=== PATIENT | male | born 1955 | race Caucasian/White ===

== ENCOUNTER 2023-05-21 08:31 | Outpatient (REF) | payer OTHER, SELFPAY | END 2023-05-21 08:32 | disposition home or self-care (01) | LOC: HO.MANLDS 08:31 | PROVIDERS: Visit Provider Physician Assistant | DX: Z12.5 Encounter for screening for malignant neoplasm of prostate (principal); I10 Essential (primary) hypertension; I63.9 Cerebral infarction, unspecified; R73.01 Impaired fasting glucose | CPT/HCPCS: 36415; 80053; 80061; 83036; 84153; 85025 ==

== ENCOUNTER 2023-07-06 08:40 | Outpatient (REF) | payer OTHER, SELFPAY ==
[2023-07-06 13:23] LABS: MANUAL DIFF FLAG NO
[2023-07-06 13:31] LABS: Basophils Percent Auto 0.6 % (0-2); Eosinophils Absolute Auto 0.2 X10*3/uL (0.0-0.4); Eosinophils Percent Auto 3.8 % (0-4); Hematocrit 46.1 % (42.0-52.0); Hemoglobin 14.9 g/dl (14.0-18.0); Imm Gran Abs Auto 0.01 X10*3/uL (0.00-0.03); Imm Gran Pct Auto 0.2 % (0.0-0.4); Lymphocytes Absolute Auto 1.3 X10*3/uL (1.2-4.9); Lymphocytes Percent Auto 28.2 % (20-40); Mean Corpuscular HGB Conc 32.3 g/dl (31.0-36.0); Mean Corpuscular Hemoglobin 27.7 pg (27.0-33.0); Mean Corpuscular Volume 85.7 fL (80.0-98.0); Mean Platelet Volume 10.9 fL (9.4-12.4); Monocytes Absolute Auto 0.5 X10*3/uL (0.1-1.2); Monocytes Percent Auto 10.5 % (2-11); Neutrophils Absolute Auto 2.7 x10*3/uL (2.0-8.3); Neutrophils Percent Auto 56.7 % (45-73); Platelet Count 212 X10*3/uL (160-400); Red Blood Count 5.38 X10*6/uL (4.60-5.80); Red Cell Distribution Width 13.4 % (11.0-16.0); White Blood Count 4.8 X10*3/uL (4.8-10.8)
[2023-07-06 13:58] LABS: Alanine Aminotransferase 18 U/L (0-40); Albumin Level 4.2 g/dL (3.5-5.0); Alkaline Phosphatase 96 U/L (39-117); Anion Gap 9 (12-20); Aspartate Amino Transferase 29 U/L (5-37); Bilirubin Total 0.8 mg/dL (0.0-1.0); Blood Urea Nitrogen 22 mg/dL (9-16); C Reactive Protein < 0.10 mg/dL (< or = 0.50); Calcium 9.1 mg/dL (8.4-10.2); Carbon Dioxide 28 mmol/L (22-29); Chloride 105 mmol/L (96-108); Estimated Glomerular Filt Rate > 60; Glucose Random 97 mg/dL (60-115); Magnesium 2.1 mg/dL (1.6-2.6); Potassium 4.1 mmol/L (3.3-5.1); Sodium 138 mmol/L (135-145); Total Protein 6.7 g/dL (6.5-8.0)
[2023-07-06 14:03] LABS: Vitamin D 25-OH Total 43.9 ng/mL (>30)
[2023-07-06 14:14] LABS: Erythrocyte Sedimentation Rate 6 MM/HR (0-15)
[2023-07-06 14:16] LABS: Folate 10.9 ng/mL (> or = 4.0); Vitamin B12 573 pg/mL (200-900)
[2023-07-07 15:54] LABS: Calcium (PTHI) 9.2 mg/dL (8.6-10.3); PTHI 63 pg/mL (16-77)
[2023-07-07 17:33] LABS: Lyme Abs Screen <0.90 index
[2023-07-13 16:28] LABS: A. Phagocytophilum Ab IgG <1:64 (<1:64); A. Phagocytophilum Ab IgM <1:20 (<1:20); E. Chaffeensis Ab IgG <1:64 (<1:64); E. Chaffeensis Ab IgM <1:20 (<1:20)
== END 2023-07-06 08:41 | disposition home or self-care (01) ==
LOC: HO.MANLDS 08:40
PROVIDERS: Visit Provider Physician Assistant
DX: M79.10 Myalgia, unspecified site (principal)
CPT/HCPCS: 36415; 80053; 82306; 82550; 82607; 82746; 83735; 83970; 85025; 85652; 86140; 86617; 86618; 86666

== ENCOUNTER 2024-03-22 09:41 | Outpatient (REF) | payer OTHER, MEDICARE, SELFPAY ==
[2024-03-22 11:13] LABS: MANUAL DIFF FLAG NO
[2024-03-22 11:43] LABS: Basophils Percent Auto 0.5 % (0-2); Eosinophils Absolute Auto 0.2 X10*3/uL (0.0-0.4); Eosinophils Percent Auto 3.2 % (0-4); Hematocrit 44.8 % (42.0-52.0); Hemoglobin 14.6 g/dl (14.0-18.0); Imm Gran Abs Auto 0.02 X10*3/uL (0.00-0.03); Imm Gran Pct Auto 0.4 % (0.0-0.4); Lymphocytes Absolute Auto 1.2 X10*3/uL (1.2-4.9); Lymphocytes Percent Auto 20.6 % (20-40); Mean Corpuscular HGB Conc 32.6 g/dl (31.0-36.0); Mean Corpuscular Hemoglobin 27.7 pg (27.0-33.0); Mean Corpuscular Volume 84.8 fL (80.0-98.0); Mean Platelet Volume 10.5 fL (9.4-12.4); Monocytes Absolute Auto 0.7 X10*3/uL (0.1-1.2); Monocytes Percent Auto 12.1 % (2-11); Neutrophils Absolute Auto 3.6 x10*3/uL (2.0-8.3); Neutrophils Percent Auto 63.2 % (45-73); Platelet Count 203 X10*3/uL (160-400); Red Blood Count 5.28 X10*6/uL (4.60-5.80); Red Cell Distribution Width 13.3 % (11.0-16.0); White Blood Count 5.6 X10*3/uL (4.8-10.8)
[2024-03-22 11:47] LABS: INTERNATIONAL NORM RATIO 1.2 (0.9-1.1); Prothrombin Time 14.2 SEC (11.1-13.3)
[2024-03-22 11:50] LABS: Partial Thromboplastin Time 38.3 SEC (26.0-36.8)
[2024-03-22 11:53] LABS: D Dimer High Sensitivity < 150 NG/ML
[2024-03-22 12:24] LABS: Iron 64 mcg/dL (45-160); Percent Iron Saturation 21 % (15-50); Total Iron Binding Capacity 300 mcg/dL (228-428); Unsaturated Iron Binding 236 ug/dL
[2024-03-22 12:43] LABS: Ferritin 103 ng/mL (20-250)
[2024-03-27 01:47] LABS: Anti-Thrombin III Activity 121 % normal (80-135)
== END 2024-03-22 09:42 | disposition home or self-care (01) ==
LOC: HO.MANLDS 09:41
PROVIDERS: Visit Provider Physician Assistant
DX: D68.59 Other primary thrombophilia (principal)
CPT/HCPCS: 81400; 82728; 83540; 85025; 85230; 85300; 85379; 85610; 85730

== ENCOUNTER 2025-03-09 10:14 | Outpatient (REF) | payer OTHER, MEDICARE, SELFPAY ==
--- OUTSIDE RECORDS SUMMARY | 2025-03-09 10:31 | XMS_ITS | Encounter Summary ---
Author Organization [facility] Address [address] [place] [id number] Phone Care Team Providers Care Ammonia Refrigeration Technician Name Role Phone Donn Osorio DO Primary Care Provider [phone] Walter Gonzales MD Unavailable [phone] Encounter Details Date Type Department Care Team (Late st Contact Info) Description 03/22/2023 Procedure Pass [facility] [address] [place] [address] Social History Tobacco Use Types Packs/Day Years Used Date Smoking Tobacco: Never Smokeless Tobacco: Never Alcohol Use Standard Drinks/Week Comments Never 0 (1 standard drink = 0.6 oz pur e alcohol) Education Answer Date Recorded Are you interested in more education? Not on cosme e 12/11/2022 Are you concerned about learning? Not on file 12/11/2022 No 12/11/2022 No 12/11/2022 Digital Access Answer Date Recorded No 01/06/2023 No 01/06/2023 Reliable internet access at home? Not on file 01/06/2023 Device with a working camera? Not on file Sex and Gender Information Value Date Recorded Sex Assigned at Male 12/30/2018 10:22 PM EDT Legal Sex Male 9:53 PM EDT Gender Identity Male 12/30/2018 10:22 PM EDT Sexual Orientation Straight 12/30/2018 10 :22 PM EDT documented as of this encounter Plan of Treatment Upcoming Encounters Date Type Department Care Team (Late st Contact Info) Description 07/18/2025 9:20 AM EST Office Visit [facility] [address] [place] [address] [address] Floor, [address] [place] [id number] Walter Gonzales MD [address] [place] [id number] [email or web address] documented as of this encounter Visit Diagnoses Not on filedocumented in this encounter Care Teams Ammonia Refrigeration Technician Relationship Specialty Start Date End Date Donn Osorio DO PCP - General Internal Medicine 12/07/18 Walter Gonzales MD [address] [place] [id number] Supervisor [facility] 01/17/19 documented as of this encounter Additional Source Comments The information contained in this document represents components of the legal health record. It is not the complete legal health record.[facility]
--- OUTSIDE RECORDS SUMMARY | 2025-03-09 10:32 | XMS_ITS | Data Portability ---
Author Organization [facility], Telehealth Patient Home Address [address] [place] [address] Assessment Encounter Date Assessment Date Assessment LastModified by Organization Details LastModified Time 05/16/2024 05/16/2024 Patient presented for medication refill. Patient tolerating medication well at current dose without adverse effects. Refilled as below. Discussed plan with patient, who expressed understanding . Follow up as noted below. [email or web address] Not available 05/16/2024 11:18:20 09/15/2024 09/15/2024 Patient agreed and verbally consents to this audio and video Telehealth appt via a secure platform [email or web address] Not available 09/15/2024 15:01:37 Plan of Treatment Reminders Order Date Submit Date Provider Last Modified By Organization Details Last Modified Time Details Appointments None recorded. Lab CBC w/ auto diff 2024 025 [facility], [address] [place] [address], [address], 5 15:46:29 CMP, serum or plasma 2024 025 [facility], [address] [place] [address], [address], 5 15:46:29 iron + TIBC + ferritin, serum 2024 025 [facility], [address] [place] [address], [address], 5 15:46:29 gamma-glut amyl transferas e (ggt), serum 2024 025 [facility], [address] [place] [address], [address], 5 15:46:29 amylase + lipase, serum 2024 025 [facility], [address] [place] [address], [address], 5 15:46:29 hemoglobin A1c, QN, blood 2024 025 [facility], [address] [place] [address], [address], 5 15:47:09 vitamin D, 25-hydroxy , total, serum 2024 025 [facility], [address] [place] [address], [address], 5 15:48:04 lipid panel, blood 2024 025 [facility], [address] [place] [address], [address], 5 15:51:53 PSA, serum or plasma 2022 023 [facility], [address] [place] [address], [address], 3 11:18:24 lipid panel, serum 2022 023 [facility], [address] [place] [address], [address], 3 11:18:23 hemoglobin A1c, QN, blood 2022 023 [facility], [address] [place] [address], [address], 3 11:18:23 CMP, serum or plasma 2022 023 [facility], [address] [facility], [place], [address], 3 11:18:23 CBC w/ auto diff 2022 023 [facility], [address] [facility], [place], [address], 3 11:18:24 Referral gastroente rologist referral 2024 025 [facility], [address] [place], [address], 5 08:28:33 sleep medicine referral 2024 025 [email or web address], [address] [facility], [facility] [address], [place], [address], 5 08:28:33 dermatolog ist referral 2024 025 [email or web address], [address] [facility], [place], [address], 5 08:28:34 pulmonolog ist referral 2022 023 [email or web address] Fredrick Bran MD, [address] [place], [address], 3 08:45:32 Procedures None recorded. Surgeries None recorded. Imaging MRI, brain, w/o contrast 2022 023 [email or web address] Not available 08:23:56 Medication Orders Zepbound 2.5 mg/0.5 mL subcutaneo us pen injector 2024 025 [facility], [address] [place] [address], [id number], 5 15:45:14 Zithromax Z-Kelvin 250 mg tablet 2024 025 [facility]97011, [address] [place], [place], [id number], 5 15:07:11 Medrol (Kelvin) 4 mg tablets in a dose pack 2024 025 [facility]53843, [address] [place], [place], [id number], 5 15:07:46 benzonatat e 200 mg capsule 2024 025 [facility] #62209, [address] [place], [place], [id number], 5 15:07:12 codeine 10 mg-guaifen esin 100 mg/5 mL oral liquid 2022 023 [email or web address]39604, [address] [place], [place], [id number], 4 11:01:58 fluticason e propionate 50 mcg/actuat ion nasal spray,susp ension 2022 024 [facility] #39247, [address] [place], [place], [id number], 4 11:02:44 azithromyc in 250 mg tablet 2022 023 [email or web address] #84414, [address] [place], [place], [id number], 5 15:06:49 codeine 10 mg-guaifen esin 100 mg/5 mL oral liquid 2022 023 [email or web address], [address] [place], [place], [id number], 4 11:01:58 Patient TargetsNo targets recorded. Patient InstructionsNo instructions recorded. Reason for Referral Patroller Referral for C ough chronic, constant cough without any benefit with treatment Referring Physician: Crystal Molina, Internal Medicine, Encounter Date: 08/24/2022 Glue Wheel Operator Referral for Intestinal obstruction co-occurrent and due to decreased peristalsis had recent partial obstruction (seen in ER in [place]) needs updated colonoscopy and endoscope Referring Physician: Crystal Molina, Internal Medicine, Encounter Date: 02/28/2025 Sleep Medicine Referral for Obstructive sleep apnea syndrome Referring Physician: Crystal Molina, Internal Medicine, Encounter Date: 02/28/2025 Backup Operator Referral for M ass of head cysts on the forehead he would like moved Referring Physician: Crystal Molina, Internal Medicine, Encounter Date: 02/28/2025 Results Created Date Observation Date Name Description Value Unit Range Abnormal Flag Note LastModifiedBy Organization Detail LastModifiedTime 06/22/20 23 06/21/2023 MRI, brain , w/o contr ast No observ ation record ed. [address], [address], 05/16/2024 11:20:25 02/19/20 25 02/16/2025 CT, abdom en + pelvi s, w/o contr ast No observ ation record ed. [address], [address], 02/19/2025 06:16:43 Result Notes None recorded. Problems Name Problem SNOMED Code Status Onset Date Resolution Date Notes Provider Name and Address Organization Details Recorded Time Obstructiv e sleep apnea syndrome 96539994 Active 2017 Not Available [facility] 3 02:32:02 Essential hypertensi on 78629684 Active 2017 Not Available [facility] 3 02:32:02 Male pattern alopecia 85883058 Active 2018 Not Available [facility] 3 02:32:02 Vitamin D deficiency 19943616 Active 2018 Not Available [facility] 3 02:32:02 Impaired fasting glycemia 185666486 Active 2018 Not Available [facility] 3 02:32:02 Coronary arterioscl erosis 05774709 Active 2018 Not Available [facility] 3 02:32:02 Cerebrovas cular accident 463042145 Active 2019 Not Available [facility] 3 02:32:02 Peripheral vascular disease 400440218 Active 2021 Not Available [facility] 3 02:32:02 Cough 11710994 Active 2021 Not Available [facility] 3 02:32:02 Chronic cough 18658933 Active 2021 Not Available [facility] 3 02:32:02 COVID-19 193154418 Active 2021 Not Available [facility] 3 02:32:02 Posterior rhinorrhea 44199577 Active 2022 Not Available [facility] 3 02:32:02 Prostate specific antigen above reference range 265836318 Active 2022 Not Available [facility] 3 02:32:02 Muscle pain 82909914 Active 2022 Not Available [facility] 3 02:32:02 Blood coagulatio n disorder 96425373 Active 2023 GONSALO PEDERSON [address] [place], [address], [facility] 4 09:30:18 Choking 901022311 Active 2023 GONSALO PEDERSON [address] [place], [address], [facility] 4 11:18:28 Intestinal obstructio n co-occurre nt and due to decreased peristalsi s 007800492 Active 2024 GONSALO PEDERSON [address] [place], [address], [facility] 5 15:37:21 Mass of head 505902923 Active 2024 GONSALO PEDERSON [address] [place], [address], [facility] 15:49:01 Problem Notes None recorded. Procedures Surgical History Date Name Laterality Status Provider Name and Address Organization Details Recorded Time 01/03/20 19 coronary artery bypass grafts x 3 completed November DERRICK Condon [address] [place], [address], [facility] 01/18/2019 11:20:58 Imaging Results None recorded. Procedure Notes None recorded. Medical Equipment None Reported. Allergies No known drug allergies Medications Name Sig Start Date Stop Date Status Note LastModified by Organization Details LastModified Time Prescriptio n - Prior Authorizati on Request active Not Available Not Available N ot Available atorvastati n 40 mg tablet 04/26 completed Not Available Not Available Not Available atorvastati n 80 mg tablet TAKE 1 TABLET BY MOUTH EVERY NIGHT AT BEDTIME. 2024 active Not Available Not Available Not Avai lable prednisone 10 mg tablet TAKE 4 TABLETS BY MOUTH DAILY X3DAYS 3 TABLETS DAILY X3DAYS TAKE 2 TABLETS DAILY X3DAYS TAKE 1 TABLET DAILY X3DAYS 09/18 completed Not Available Not Available Not Available atorvastati n 20 mg tablet TAKE 1 TABLET BY MOUTH ONCE DAILY 02/27 completed Not Available Not Available Not Available azithromyci n 250 mg tablet TAKE 2 TABLETS (500 MG) BY ORAL ROUTE ONCE DAILY FOR 1 DAY THEN 1 TABLET (250 MG) BY ORAL ROUTE ONCE DAILY FOR 4 DAYS 02/28 completed Not Available Not Available Not Available aspirin 325 mg tablet Take 1 tablet every day by oral route. 04/26 completed Not Available Not Available Not Available benzonatate 200 mg capsule TAKE 1 CAPSULE BY MOUTH THREE TIMES DAILY FOR 10 DAYS NEEDED FOR COUGH 02/28 completed Not Available Not Available Not Available metoprolol succinate ER 50 mg tablet,exte nded release 24 hr TAKE 1 TABLET BY MOUTH DAILY; CALL OFFICE 2024 active Not Available Not Available Not Avai lable promethazin e 6.25 mg-codeine 10 mg/5 mL syrup 11/17 completed Not Available Not Available Not Available clopidogrel 75 mg tablet take 1 tablet by mouth once daily 06/05 completed Not Available Not Available Not Available ciprofloxac in 500 mg tablet TAKE 1 TABLET BY MOUTH TWICE DAILY ON THE MORNING OF BIOPSY 05/16 completed Not Available Not Available Not Available aspirin 325 mg tablet,shyam yed release 04/26 completed Not Available Not Available Not Available meclizine 25 mg tablet 04/26 completed Not Available Not Available Not Available cephalexin 500 mg capsule 04/26 completed Not Available Not Available Not Available pantoprazol e 40 mg tablet,shyam yed release take 1 tablet by mouth once daily 04/26 completed Not Available Not Available Not Available lisinopril 10 mg tablet take 1 tablet by mouth once daily 02/06 completed Not Available Not Available Not Available losartan 25 mg tablet active Not Available Not Available No t Available fluoxetine 10 mg capsule TAKE 1 CAPSULE BY MOUTH EVERY DAY active Not Available Not Available No t Available omeprazole 20 mg capsule,del ayed release Take 1 capsule every day by oral route in the morning. 04/26 completed Not Available Not Available Not Available codeine 10 mg-guaifene sin 100 mg/5 mL oral liquid TAKE 10 ML BY MOUTH EVERY 6 HOURS NEEDED 05/16 completed Not Available Not Available Not Available lisinopril 5 mg tablet TAKE 1 TABLET BY MOUTH EVERY DAY 11/18 completed Not Available Not Available Not Available levofloxaci n 500 mg tablet TAKE 1 TABLET BY MOUTH EVERY 24 HOURS FOR 10 DAYS 09/18 completed Not Available Not Available Not Available scopolamine 1 mg over 3 days transdermal patch 11/17 completed Not Available Not Available Not Available methylpredn isolone 4 mg tablets in a dose pack FOLLOW PACKAGE DIRECTION S 02/28 completed Not Available Not Available Not Available albuterol sulfate HFA 90 mcg/actuati on aerosol inhaler INHALE 2 PUFFS INTO THE LUNGS EVERY 4 HOURS FOR 30 DAYS 05/16 completed Not Available Not Available Not Available diltiazem 30 mg tablet Take 1 tablet 3 times a day by oral route. 04/26 completed Not Available Not Available Not Available fluticasone propionate 50 mcg/actuati on nasal spray,suspe nsion SHAKE LIQUID AND USE 1 SPRAY IN EACH NOSTRIL EVERY DAY 05/16 completed Not Available Not Available Not Available finasteride 1 mg tablet TAKE 1 TABLET BY MOUTH EVERY DAY 2024 active Not Available Not Available Not Avai lable amoxicillin 875 mg-sherin m clavulanate 125 mg tablet TAKE 1 TABLET BY MOUTH EVERY 12 HOURS FOR 7 DAYS 05/19 completed Not Available Not Available Not Available oxycodone 5 mg tablet Take 1 tablet every 8 hours by oral route as needed. 07/18 completed Not Available Not Available Not Available acetaminoph en Take 2 tablets every 6 hours prn 04/26 completed Not Available Not Available Not Available finasteride take one tablet once a day 01/18 completed Not Available Not Available Not Available Vitamin D Take one tablet once a day 04/26 completed Not Available Not Available Not Available Asprin Ec Low Dose qd 07/29 completed Not Available Not Available Not Available ferrous gluconate 324 mg (38 mg iron) tablet Take 1 tablet twice a day by oral route. 04/26 completed Not Available Not Available Not Available diclofenac 1 % topical gel APPLY 2 GRAMS TOPICALLY FOUR TIMES DAILY 02/28 completed Not Available Not Available Not Available Xarelto 20 mg tablet TAKE 1 TABLET BY MOUTH EVERY DAY active Not Available Not Available No t Available Eliquis 5 mg tablet 09/18 completed Not Available Not Available Not Available Zepbound 2.5 mg/0.5 mL subcutaneou s pen injector Inject 2.5 mg every week by subcutane ous route for 30 days. 2024 active Not Available Not Available Not Avai lable Vitals Date Recorded Body height Body mass index (BMI) Body weight Heart rate Oxygen saturation Oxygen saturation in Arterial blood by Pulse oximetry Systolic And Diastolic Provider Name and Address Organization Details Last Updated DateTime 5 175.26 cm 31.6 kg/m2 73823.7 7 g 80 /min 95 % 95 % 136/84 mm[Hg] [facility] 5 15:08:39 Date Recorded Body height Body mass index (BMI) Body weight Heart rate Oxygen saturation Oxygen saturation in Arterial blood by Pulse oximetry Systolic And Diastolic Provider Name and Address Organization Details Last Updated DateTime 4 175.26 cm 32.3 kg/m2 71184.0 1 g 75 /min 96 % 96 % 128/78 mm[Hg] Deanne Coronado [facility] 4 11:09:33 Date Recorded Body height Body mass index (BMI) Body weight Heart rate Oxygen saturation Oxygen saturation in Arterial blood by Pulse oximetry Systolic And Diastolic Provider Name and Address Organization Details Last Updated DateTime 3 175.26 cm 31.9 kg/m2 64087.9 5 g 77 /min 96 % 96 % 130/80 mm[Hg] Sallie Reeder [facility] 3 14:34:45 Social History Question Answer Notes LastModified by Organizat ion Details LastModified Time Tobacco Smoking Status Never Smoker Not Available [facility] 06/18/2020 03:36:24 What Was The Date Of Your Most Recent Tobacco Screening? 02/28/2025 [email or web address] Information not available 02/28/2025 Sex: Unknown Functional Status Question Answer Note LastModified by Organization D etails LastModified Time Do you or have you ever used any other forms of tobacco or nicotine? No [email or web address] Information not available 05/19/2023 Mental Status None recorded. Family History Relationship Description Onset Age of this Age Resolved Age Notes LastModified by Organization Details LastModified Time Brother Coronary arterioscler osis 57 [email or web address] Not available 01/18 11:21:15 Mother Cerebrovascu lar accident 68 [place] celia Not available 12:27:46 Father Myocardial infarction 72 [email or web address] Not available 12/07 12:27:59 Medical History No medical history recorded. Past Encounters Encounter ID Performer Location Encounter Start Date Encounter Closed Date Diagnosis/Indication Diagnosis SNOMED-CT Code Diagnosis ICD10 Code Diagnosis Note [id number] Elizabeth Walker NP, S [facility] [address] [facility],[place] [address] 11/17/2017 15:49:12 11/17/2017 16:47:57 Chronic bronchitis 05099462 J42 call if symptoms persist or worsen Essential hypertension 52729155 I10 stable on lisinopril [id number] Donn Osorio DO [facility] [address] [facility] [address] [address] 02/22/2018 08:52:20 02/22/2018 09:39:50 Adult health examination 378799367 Z00.01 Active or passive immunization 136645213 Z23 Hyperlipidemia 56557681 E78.5 much better on lipitor Microscopic hematuria 19 9686763 R31.21 if neg for infection will consult urology Obstructiv e sleep apnea syndrome 96698752 G47.33 does not treat it. had cpap, gave it away. understand s the risks. Essential hypertension 24661235 I10 Vitamin D deficiency 347 10588 E55.9 takes supplement Male pattern alopecia 87 293627 L64.9 on finasterid e [id number] Donn Osorio [facility] [address] [facility],[place] [address] 08/17/2018 14:27:37 08/19/2018 08:35:43 Essential hypertension 93182129 I10 stable and doing well without issues.... . no prob with meds cont current tx will need some fasting lab next visit Obstructiv e sleep apnea syndrome 39530980 G47.33 has been stable without any treatment for several years and has no stigma of untreated LAMBERTO for insur bisi will need to perform a home study [id number] Donn Osorio [facility] [address] [facility],[place] [address] 08/24/2018 09:28:58 08/24/2018 14:24:58 Hyperlipidemia 17404843 E78.5 much better on lipitor Obstructiv e sleep apnea syndrome 94984469 G47.33 will be having sleep study to reassess need for cpap Essential hypertension 40705941 I10 well controlled reinforced healthy diet and weight loss Vitamin D deficiency 347 39202 E55.9 takes supplement Male pattern alopecia 87 628598 L64.9 on finasterid e Impaired f asting glycemia 165535606 R73.01 very slightly elevated fbs, will recheck fbs as well as a1c Body mass index 25-29 - overweight 783374374 Z68.29 work on healthy diet and exercise Screening procedure 2012 5006 Z13.9 [id number] Donn Osorio [facility] [address] [facility],[place] [address] 09/16/2018 09:02:52 09/16/2018 10:15:33 Essential hypertension 59732187 I10 stable and doing well without issues.... . no prob with meds cont current tx will need some fasting lab next visit Obstructiv e sleep apnea syndrome 22672449 G47.33 reviewed in detail has moderate to sev LAMBERTO will refer back to get CCPAP started but with nasal pillows [id number] Donn Osorio [facility] [address] [facility] [address],[place] [address] 10/05/2018 10:03:11 10/05/2018 10:41:58 Obstructive sleep apnea syndrome 22537160 G47.33 picking up cpap tomorrow Essential hypertension 42571473 I10 mildly elevated today Cough 17490451 R05 [id number] Donn Osorio DO [facility] [address] [facility] [address],[place] [address] 11/18/2018 08:55:00 11/18/2018 11:48:08 Essential hypertension 24142000 I10 stable and doing well without issues.... . no prob with meds cont current tx will need some fasting lab next visit will need to monitor bp to see if it cont to decrease Impaired f asting glycemia 332939965 R73.01 denies issues Vitamin D deficiency 347 39043 E55.9 will recheck in 2 months Obstructiv e sleep apnea syndrome 29077738 G47.33 doing fantastic and feeling great will cont and watch bp as this might be coming down [id number] Donn Osorio DO [facility] [address] [facility] [address] [address] 12/07/2018 11:48:55 12/07/2018 14:00:00 Atypical chest pain 536527962 R07.89 On examina tion - cardiac murmur 785337764 R01.1 Impaired f asting glycemia 768522725 R73.01 A1C 6.0 Essential hypertension 25995628 I10 mildly elevated today, very stressed Obstructiv e sleep apnea syndrome 62533629 G47.33 compliant [id number] Donn Osorio [facility] [address] [facility] [address],[place] [address] 01/18/2019 10:37:13 01/18/2019 11:38:18 Essential hypertension 64343447 I10 well controlled Coronary arteriosclerosis 92064415 I25.10 doing well f/u with cardio - next week [id number] Donn Osorio [facility] [address] [facility] [address],[place] [address] 02/06/2019 13:53:23 02/06/2019 14:40:34 Peripheral vascular disease 986171861 I73.9 Vertebral artery occlusion 259326575 I65.09 will await input from pts getting [place] [facility] [place] will get neurologis t Cerebral infarction 4325 60574 I63.9 also has signif vertigo from cerebellar disease will follow cont plavix good bp control etc [id number] Donn Osorio [facility] [address] [facility] [address],[place] [address] 04/26/2019 15:47:33 04/26/2019 16:45:55 CVA - cerebrovascular accident due to cerebral artery occlusion 916541218 I63.50 Patent foramen ovale 204 387163 Q21.1 Coronary arteriosclerosis 19712568 I25.10 doing well f/u with cardio - next week Essential hypertension 26642870 I10 well controlled [id number] Donn Osorio [facility] [address] [facility] [address],[place] [address] 05/05/2019 16:12:35 05/08/2019 08:18:15 Mood swings 69825530 R45.86 neurologis t recommende d prozac - will rx Cerebrovas cular accident 424004876 I63.9 x 2 [id number] Donn Osorio [facility] [address] [facility] [address],[place] [address] 06/05/2019 13:48:54 06/05/2019 14:41:13 Essential hypertension 30756805 I10 well controlled Cough 09638652 R05 Posterior rhinorrhea 758 48248 R09.82 [id number] Donn Osorio [facility] [address] [facility] [address],[place] [address] 09/12/2019 11:13:07 09/12/2019 12:04:59 Cerebrovascular accident 112226111 I63.9 Peripheral vascular disease 184588293 I73.9 Essential hypertension 10505045 I10 mildlly elevated increase lisinopril from 5 mg to 10 mg per day [id number] Donn Osorio [facility] [address] [facility] [address] 07/29/2020 08:45:17 07/29/2020 12:06:19 Coronary arteriosclerosis 13002156 I25.10 the patient follows with cardiology take atorvastat in 80 mg, labs looked fine Cerebrovas cular accident 314619559 I63.9 needs refill, no bleeding events or significan t bruising per patient [id number] Donn Osorio [facility] [address] [facility] [address] 09/20/2020 08:35:45 09/20/2020 16:06:07 Essential hypertension 72112743 I10 will fu in two weeks to see if any change in cough if needed will switch out his medication s Cough 08404370 R05 if [place] [id number] Donn Osorio [facility] [address] [facility],[place] [address] 07/21/2021 09:24:08 07/21/2021 15:19:44 Acute bronchitis 41930248 J20.9 will start on medrol dose kelvin, z kelvin and cough suppressan t [id number] Donn Osorio [facility] [address] [facility],[place] [address] 09/15/2021 10:19:09 09/16/2021 16:23:25 Cerebrovascular accident 126125226 I63.9 stable and quiet per insurance will need to change to xarelto Peripheral vascular disease 692786937 I73.9 Essential hypertension 28872053 I10 stable and doing well without issues.... . no prob with meds cont current tx will need some fasting lab next visit will need to monitor bp to see if it cont to decrease Impaired f asting glycemia 986770981 R73.01 denies issues melita be looking into keto diet and keto supp to lose wgt Coronary arteriosclerosis 69737631 I25.10 doing welll and is asymptomat ic Male pattern alopecia 87 260144 L64.9 Renewal of prescription 987627203 Z76.0 [id number] Donn [facility] [address] [facility] [address] 03/03/2022 09:17:52 03/03/2022 14:20:42 Acute bronchitis [id number] J20.8 will start on medrol dose kelvin, z kelvin and cough suppressan t [id number] Donn [facility] Internal [address] [address] 06/16/2022 11:02:08 06/16/2022 13:39:37 Chronic cough [id number] R05.3 will fu with XRalbutero l inhaler [id number] Donn [facility] [address] [place] [address], [place] [facility] [place] [address] 08/24/2022 10:55:44 08/24/2022 15:27:34 Cough 30985393 R05.3 will set up with STAT pulm referralst art on zpak and cough syrupmay need to try a different pharm who has it in stock [id number] Donn [facility] [address], [place] [address] 05/19/2023 14:25:39 05/19/2023 16:22:52 Essential hypertension [id number] I10 stable Cerebrovas cular accident [id number] I63.9 needs refill, no bleeding events or significan t bruising per patient Peripheral vascular disease 128228050 I73.89 stable Cough 00754546 R05.3 resend medication Posterior rhinorrhea 758 99966 R09.82 needs new script Screening for malignant neoplasm of prostate 840285061 Z12.5 will set up routine screening [id number] Donn [facility] [address] [facility],[place] 7 05/16/2024 10:57:51 05/16/2024 11:44:22 Renewal of prescription [id number] Z76.0 stable Depression screening 171 500606 Z13.31 SCREENING NEGATIVE Choking 412889077 R09.89 will monitor Essential hypertension 78877427 I10 stable [id number] Donn [facility] [address] [facility] [address],[place] [address] 09/15/2024 10:41:39 09/15/2024 15:20:18 Acute bronchitis 32944687 J20.8 will start on medrol dose kelvin, z kelvin and cough suppressan t Cough 65847484 R05.2 has inhaler, start meds [id number] Donn [facility]sor[facility] Medicine [address] [facility] [address],[place] [address] 02/28/2025 15:00:56 02/28/2025 16:36:27 Depression screening [id number] Z13.31 SCREENING NEGATIVE Intestinal obstruction co-occurrent and due to decreased peristalsis 509370410 K56.7 will set up with lab workSTAT GI referral placed Impaired f asting glycemia 392816964 R73.01 recheck levels Essential hypertension 82564464 I10 stable today Vitamin D deficiency 347 89534 E55.9 will set up with recheck Obstructiv e sleep apnea syndrome 73794123 G47.33 will try for zepbound [place] of [place] 899653551 R 22.0 will set up with derm referral Health Concerns Section Related Observation LastModified by Organization Detai ls LastModified Time None Recorded Concern Status LastModified by Organization Details LastModified Time None Recorded Advance Directives Directive None Recorded Payers Insurance Date Sequence Insurance Name Policy Number Policy Wilson Covered Member ID Wilson Member ID Guarantor Name 02/25/2025 1 [employer] [id number] Celestino Pedro [id number] Celestino Pedro 05/19/2023 1 [facility] [id number] Celestino Pedro [id number] Celestino Pedro 05/19/2023 1 [employer] (POS) [id number] Celestino Pedro [id number] Celestino Pedro 02/25/2025 2 [place]IC[place]: [employer] Celestino Vasquez [id number] Celestino Vasquez Notes Date Note Type Note Provider Name a nd Address Organization Details Recorded Time 3 text/html ROS as noted in the HPI c/o cough telemed phone callpatient consents patient was supposed to get referral to pulm for chronic cough, no one called patient will need to resubmit start on zpak and cough syrup in the meantime, does have a cold right now which is making it worse GONSALO PEDERSON [address] [place], [address], [facility] 08/24/2022 14:37:32 3 text/html ROS as noted in the HPI disability paperwork the patient is here for renewal of his disability paperworkthe patient had a stroke few years agohas custodial complications for his memory (custodial is good; short term is poor)the patient needs new paperwork for disability his Mini-Mental Status Exam score was 27/30was incapable of the recall of the three words partwhich was expected given history of short term memory loss needs new lab work and MRI set up for more recent studys the patient just had a coldwill reorder the cough syrup will send in flonase GONSAL[employer] PEDERSON [address] [place], [address], [facility] 05/19/2023 15:17:52 4 text/html ROS as noted in the HPI f/u medication check depression screening: The patient denies little pleasure in activities they find enjoyable, feeling depressed, difficulties sleeping, feeling tired or having little energy, change in appetite, feeling guilty, overwhelmed or unmotivated. The patient denies suicidal ideation, thoughts of hurting themselves or others. Their mood is appropriate, they show good judgement and clear understanding of the conversation. They are orientated to time, place and person. They are not expressing any concerning thoughts or actions that would need further investigation and treatment for mental health. choking: discussed the reactiononly happened twice, both times eating [place] food with porkcould be an allergic reaction to the pork or foodwill monitorsuggested slower eating, smaller bites, swallow each bite before eating more food declines imaging or swallow study GONSALO PEDERSON [address] [place], [address], [facility] 05/16/2024 11:31:36 5 text/html ROS as noted in the [facility] c/o URI symptoms The patient is participating in this appointment via telemedicine communication with a phone call/video calling service ([employer])The patient consents to use of these platforms in place of an in-person appointment due to either sick symptoms the patient is presenting with or current office closure due to COVID exposure in order to keep our office staff and patients safe The patient presents to the office today with concerns of sick symptoms including productive cough, clear to white in color, chest congestion has been going on for the last 3 to 6 weeks denies fever, chills, sob, wheezing The symptoms started originally about 3 to 6 weeks agoThe patient reports exposure to unknown, gets this every year and lingers until he is treatedThe patient symptoms mainly involves the constant cough Pertinent comorbidities include na The patient symptoms are alleviated by rest, no talkingThe patient symptoms are exacerbated by talking, moving The patient has tested for COVID-19 and the results was n/a, did not test GONSAL[facility] PEDERSON [address] [place], [address], [facility] Internal [facility] 09/15/2024 15:07:37 5 text/html ROS as noted in the [facility] hospital d/c [facility] in [place], [place] (will request records) 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
--- OUTSIDE RECORDS SUMMARY | 2025-03-09 10:32 | XMS_ITS | Clinical Summary ---
Author Organization [facility] Address [address] [place] [address] Care Team Providers Care Principal Consulting Engineer Name Role Phone Unavailable Primary Care Provider Unavailabl e Social History Tobacco Use Types Packs/Day Years Used Date Smoking Tobacco: Never Assessed Sex and Gender Information Value Date Recorded Sex Assigned at Not on file Legal Sex Male 9:49 PM EST Gender Identity Not on file Sexual Orientation Not on file Plan of Treatment Health Maintenance Due Date Last Done Comments DTaP,Tdap,and Td Vaccines (1 - Tdap) 1976 Pneumococcal Vaccine: 50+ Ye ars (1 of 1 - PCV) 2007 Zoster Vaccines (1 of 2) 2007 COVID-19 Vaccine (1 - 2023-2 5 season) 2024 Depression Screening 08/16/2024 Influenza Vaccine (#1) 2025 RSV Immunization Adult Patie nts (1 - 1-dose 75+ series) 2032 HIB Vaccines Aged Out No longer eligi ble based on patient's age to complete this topic HPV Vaccines Aged Out No longer eligi ble based on patient's age to complete this topic Hepatitis A Vaccines Aged Out No long er eligible based on patient's age to complete this topic Hepatitis B Vaccines Aged Out No long er eligible based on patient's age to complete this topic IPV Vaccines Aged Out No longer eligi ble based on patient's age to complete this topic MMR Vaccines Aged Out No longer eligi ble based on patient's age to complete this topic Meningococcal ACWY Vaccine Aged Out N o longer eligible based on patient's age to complete this topic Meningococcal B Vaccine Aged Out No l onger eligible based on patient's age to complete this topic RSV Immunization Patients Un sudeep 20 months Aged Out No longer eligible b ased on patient's age to complete this topic Varicella Vaccines Aged Out No longer eligible based on patient's age to complete this topic
== END 2025-03-09 10:15 | disposition home or self-care (01) ==
LOC: HO.MANLDS 10:14
PROVIDERS: Visit Provider Physician Assistant
DX: Z13.89 Encounter for screening for other disorder (principal)